=== PATIENT | female | born 2000 | race Caucasian/White ===

== ENCOUNTER 2021-04-14 08:25 | Inpatient (IN) | payer OTHER ==
[~2021-04-14] VITALS: Ht 147.3 cm; Wt 70.5 kg
[2021-04-14] VITALS (42 sets, daily range): BP systolic 84–128; BP diastolic 50–82
[2021-04-14] MEDS ORDERED: BUTORPHANOL INJ 2 MG/ML (STADOL) VIAL IV PRN (11:45)
[2021-04-14] MEDS ORDERED: AMPICILLIN FOR IV USE 2,000 MG in NS (IVPB) 50 ML IV SCH (11:46)
[2021-04-14] MEDS ORDERED: OXYTOCIN PRE-MIX DRIP 500 ML IV SCH ×2 (12:00→13:00)
[2021-04-14] MEDS ORDERED: D5 LR IV SOLUTION 1,000 ML IV SCH (12:00)
[2021-04-14] MEDS ORDERED: MEPIVACAINE (CARBOCAINE) 2% 50 ML VIAL INJ PRN (12:00)
[2021-04-14 12:29] LABS: BASOPHILS # (AUTO) 0.1 10^3/uL (0.0-0.1); BASOPHILS % (AUTO) 0 % (0-10); EOSINOPHILS # (AUTO) 0.3 10^3/uL (0.0-0.3); EOSINOPHILS % (AUTO) 2 % (0-10); HEMATOCRIT 31 % (35-52); HEMOGLOBIN 10.4 g/dL (11.5-16.0); LYMPHOCYTES # (AUTO) 2.1 10^3/uL (1.0-4.0); LYMPHOCYTES % (AUTO) 15 % (12-44); MEAN CORPUSCULAR HEMOGLOBIN 27 pg (25-34); MEAN CORPUSCULAR HGB CONC 33 g/dL (32-36); MEAN CORPUSCULAR VOLUME 79 fL (80-99); MEAN PLATELET VOLUME 11.3 fL (9.0-12.2); MONOCYTES # (AUTO) 0.8 10^3/uL (0.0-1.0); MONOCYTES % (AUTO) 6 % (0-12); NEUTROPHILS # (AUTO) 10.1 10^3/uL (1.8-7.8); NEUTROPHILS % (AUTO) 75 % (42-75); PLATELET COUNT 207 10^3/uL (130-400); WHITE BLOOD COUNT 13.5 10^3/uL (4.3-11.0)
--- NOTE | 2021-04-14 12:52 | History & Physical-OB ---
OB - Chief Complaint & HPI Date/Time Date of Admission: Date of Admission: Apr 14, 2021 at 11:40 Date seen by a Provider: Apr 14, 2021 Time Seen by a Provider: 12:40 Chief Complaint/History OB-Reason for Admission/Chief: Onset of Labor Hx : 3 Hx Para: 2 Expected Date of Delivery: Apr 24, 2021 Gestational Age in Weeks: 38 Gestational Age in Days: 4 Admission Nurse Assessment Rev: Yes History of Labs GBS unknown Allergies and Home Medications Allergies Coded Allergies: No Known Drug Allergies (Unverified , 04/14/21) Patient Home Medication List Home Medication List Reviewed: Yes OB - History Hx of Present Care: Yes Ultrasounds: Abnormal US findings (oligohydraminos) Obstetrical Complications: Other (oligo) Medical Complications: Other (maternal sphyllis in ) Patient Past Medical History maternal sphyllis in Immunizations Influenza Vaccine Up-to-Date: No; Not Current OB - Admission Exam Physical Exam HEENT: Moist Membranes Heart: Rhythm Normal Lungs: Clear Abdomen: Gravid Cervical Dilatation: 3cm Effacement: 75% Station: -3 Membranes: Ruptured Amniotic Fluid: Clear Heart Rate: 140's Accelerations: Accelerations Present Short Term Variability: Present Contractions on Admission: 6-10 Minutes Apart Intensity: Mild Labs Laboratory Tests Test 04/14/21 12:26 Range/Units White Blood Count 13.5 H 4.3-11.0 10^3/uL Red Blood Count 3.93 3.80-5.11 10^6/uL Hemoglobin 10.4 L 11.5-16.0 g/dL Hematocrit 31 L 35-52 % Mean Corpuscular Volume 79 L 80-99 fL Mean Corpuscular Hemoglobin 27 25-34 pg Mean Corpuscular Hemoglobin Concent 33 32-36 g/dL Red Cell Distribution Width 14.7 H 10.0-14.5 % Platelet Count 207 130-400 10^3/uL Mean Platelet Volume 11.3 9.0-12.2 fL Immature Granulocyte % (Auto) 2 % Neutrophils (%) (Auto) 75 42-75 % Lymphocytes (%) (Auto) 15 12-44 % Monocytes (%) (Auto) 6 0-12 % Eosinophils (%) (Auto) 2 0-10 % Basophils (%) (Auto) 0 0-10 % Neutrophils # (Auto) 10.1 H 1.8-7.8 10^3/uL Lymphocytes # (Auto) 2.1 1.0-4.0 10^3/uL Monocytes # (Auto) 0.8 0.0-1.0 10^3/uL Eosinophils # (Auto) 0.3 0.0-0.3 10^3/uL Basophils # (Auto) 0.1 0.0-0.1 10^3/uL Immature Granulocyte # (Auto) 0.2 H 0.0-0.1 10^3/uL OB - Assessment/Plan/Diagnosis Assessment Assessment: active labor (at 38w4d) Admission Dx 1. IUP at 38w4d 2. Oligohydraminos 3. maternal sphyllis in Admission Status: Inpatient Order (span 2 midnights) Reason for Inpatient Admission: L&D Plan Induction Method: AROM Other Plan -amp protochol (since GBS unknow) -desires epidural -pitocin MARIA G BAH MD Apr 14, 2021 12:52
[2021-04-14] MEDS ORDERED: fentaNYL 2 mcg/ml BUPIVA 0.125 100 ML ONE (12:58)
[2021-04-14 12:59] LABS: BILIRUBIN,URINE NEGATIVE (NEGATIVE); CLARITY,URINE CLEAR; COLOR,URINE YELLOW; GLUCOSE, URINE (UA) NEGATIVE (NEGATIVE); KETONES,URINE NEGATIVE (NEGATIVE); LEUKOCYTE ESTERASE ,URINE TRACE (NEGATIVE); NITRITE,URINE NEGATIVE (NEGATIVE); PROTEIN,URINE NEGATIVE (NEGATIVE)
[2021-04-14 13:15] LABS: BACTERIA,URINE FEW /HPF; WBC,URINE 0-2 /HPF
[2021-04-14] MEDS ORDERED: LACTATED RINGERS 1,000 ML IV ONE (13:15)
[2021-04-14] MEDS ORDERED: fentaNYL 2 mcg/ml BUPIVA 0.125 100 ML IV SCH (13:15)
[2021-04-14] MEDS ORDERED: CATHETER FLUSH 10 ML SYR IV PRN (13:15)
[2021-04-14] MEDS ORDERED: NALOXONE 0.4 MG/ML 1 ML (NARCAN) VIAL IV PRN ×2 (13:15→18:00)
[2021-04-14] MEDS ORDERED: ONDANSETRON 4 MG/2 ML (SDV) Z0FRAN IV PRN (13:15)
[2021-04-14] MEDS ORDERED: fentaNYL INJ 100 MCG/2 ML AMP ONE (13:19)
[2021-04-14] MEDS ORDERED: BUPIVACAINE 0.25% 30 ML (SENSORCAINE) VIAL ONE (13:20)
[2021-04-14] MEDS ORDERED: CATHETER FLUSH 10 ML SYR IV SCH ×2 (14:00→22:00)
[2021-04-14] MEDS ORDERED: PREN1TAB79 PO (14:09)
[2021-04-14] MEDS ORDERED: AMPICILLIN FOR IV USE 1,000 MG in NS (IVPB) 50 ML IV SCH (16:00)
[2021-04-14] MEDS ORDERED: FLU QUADRIvalent (3YOA+) 60 mcg/0.5 ml 2021-22(AFLURIA) IM ONE (16:15)
--- NOTE | 2021-04-14 17:51 | OB Labor & Delivery Record ---
L&D History Date of Service Date of Service: Apr 14, 2021 History Expected Date of Delivery: Apr 24, 2021 Gestational Age in Weeks: 38 Hx : 3 Hx Para: 3 Other History maternal history of syphilis that was treated in second trimester. Complications Events: Oliohydramnios Operative Indications (C[place]: N/A-Vaginal Delivery Intrapartal Events: None Other Complications GBS status unknown therefore she was given ampicillin protocol L&D Stage1 Stage One Onset of Labor - Date: Apr 14, 2021 Onset of Labor - Time: 12:45 Monitors and Tracing Monitor Mode: Internal Monitor Accelerations: Uniform Monitor Decelerations: Variable International Controller Variability: Average (6-10) Short Term Variability: Present Presentation: Vertex Vital Signs VS - Last 72 Hours, by Label 04/14/21 09:00 Temp 36.9 Pulse 110 Resp 20 Pulse Ox 99 O2 Delivery Room Air Signs of Distress by FHT Signs of Distress no Rupture of Membranes Spontaneous Ruture of Membrane: No Amniotic Membrane Rupture Time: 12:45 Amniotic Membrane Fluid Desc.: Clear Vaginal Bleeding Description: None Induction/Anesthesia Epidural Cath Placement - Time: 1334 L&D Stage2 Stage Two Stage II Date: Apr 14, 2021 Stage II Time: 17:19 Monitors and Tracing Monitor Mode: Internal Monitor Accelerations: Uniform Monitor Decelerations: Variable International Controller Variability: Average (6-10) Short Term Variability: Present Position: Left Occiput Anterior Presentation: Vertex Signs of Distress by FHT Signs of Distress no Cord Descript/Complications Cord Vessel Description: 3 Vessels Delivery Type Delivery Method: Spontaneous Vaginal Anterior Shoulder: Left Episiotomy/Perineal Laceration Laceraction(s)/Extensions: No Condition of Infant Delivery 1 minute Comment: 8 5 minute Comment: 9 Condition of Infant Exam: No Observed Abnormalities Resuscitation Resuscitation: N/A - Spontaneous Resp L&D Stage3 Stage Three Stage III Date: Apr 14, 2021 Stage III Time: 17:23 Pictocin Pitocin ml/hr: 125 Placenta Delivery Placenta Delivery: Spontaneous Delivery Summary Summary Estimated blood loss (mL): 200 Condition of Delivery Examined: Cervix Examined Post Hemorrhage: No Intervention Required none MARIA G BAH MD Apr 14, 2021 17:51
[2021-04-14] MEDS ORDERED: OXYTOCIN PRE-MIX DRIP 500 ML IV ONE (17:55)
[2021-04-14] MEDS: OXYTOCIN PRE-MIX DRIP 500 ML IV SCH ×2 (17:57→19:09)
[2021-04-14] MEDS ORDERED: ACETAMINOPHEN 500 MG TAB (TYLENOL) PO SCH (18:00)
[2021-04-14] MEDS ORDERED: WITCH HAZEL(TUCKS) 40 EA JAR TOP PRN (18:00)
[2021-04-14] MEDS ORDERED: MEASLES,MUMPS,RUBELLA 1 EA INJ SQ ONE (18:00)
[2021-04-14] MEDS ORDERED: BENZOCAINE/MENTHOL (DERMOPLAST) 56 ML CAN TP PRN (18:00)
[2021-04-14] MEDS ORDERED: TETANUS,DIPTH,PERTUSS P/F (BOOSTRIX) 0.5 ML VIAL IM ONE (18:00)
[2021-04-14] MEDS: IBUPROFEN 600 MG (MOTRIN) TAB PO SCH ×2 (18:30→23:58)
[2021-04-14] MEDS ORDERED: METHYLERGONOVINE 0.2 MG/ML (METHERGINE) AMP ONE (18:39)
[2021-04-14] MEDS ORDERED: METHYLERGONOVINE 0.2 MG/ML (METHERGINE) AMP IM ONE (19:45)
[2021-04-14] MEDS: DOCUSATE SODIUM 100 MG (COLACE) CAP PO SCH (23:13)
[2021-04-15 00:17] VITALS: BP 94/50
[2021-04-15 04:20] VITALS: BP 89/55
[2021-04-15] MEDS: IBUPROFEN 600 MG (MOTRIN) TAB PO SCH ×3 (05:47→18:05)
[2021-04-15 06:32] LABS: BASOPHILS # (AUTO) 0.1 10^3/uL (0.0-0.1); BASOPHILS % (AUTO) 0 % (0-10); EOSINOPHILS # (AUTO) 0.4 10^3/uL (0.0-0.3); EOSINOPHILS % (AUTO) 3 % (0-10); HEMATOCRIT 25 % (35-52); HEMOGLOBIN 8.3 g/dL (11.5-16.0); LYMPHOCYTES # (AUTO) 2.7 10^3/uL (1.0-4.0); LYMPHOCYTES % (AUTO) 17 % (12-44); MEAN CORPUSCULAR HEMOGLOBIN 26 pg (25-34); MEAN CORPUSCULAR HGB CONC 33 g/dL (32-36); MEAN CORPUSCULAR VOLUME 80 fL (80-99); MEAN PLATELET VOLUME 11.6 fL (9.0-12.2); MONOCYTES # (AUTO) 1.3 10^3/uL (0.0-1.0); MONOCYTES % (AUTO) 9 % (0-12); NEUTROPHILS # (AUTO) 11.2 10^3/uL (1.8-7.8); NEUTROPHILS % (AUTO) 71 % (42-75); PLATELET COUNT 196 10^3/uL (130-400); WHITE BLOOD COUNT 15.8 10^3/uL (4.3-11.0)
--- NOTE | 2021-04-15 07:06 | Discharge Summary ---
Diagnosis/Chief Complaint Date of Admission Apr 14, 2021 at 11:40 Date of Discharge April 15, 2021 Admission Diagnosis Admission Diagnosis 1. Intrauterine at 38 weeks gestation 2. History of maternal syphilis in treated Discharge Diagnosis 1. Intrauterine at 38 weeks gestation 2. History of maternal syphilis in treated 3. hemorrhage Chief Complaint/HPI Chief Complaint/HPI 20-year-old 3 now term 3 who initially presented to labor and delivery at 38 weeks 4 days gestation with uterine contractions. Patient presented during the afternoon of April 14, 2021 and was noted to be dilated to 3 cm. She had also seen perinatologist during the course of her care due to maternal syphilis. On recent ultrasound she was found to have oligohydramnios. Her EDC is noted to be April based upon her first ultrasound performed at 25 weeks at [facility]. Discharge Summary-OBS Procedures 1. Epidural per anesthesia 2. Spontaneous vaginal delivery Discharge Physical Examination Allergies: Coded Allergies: No Known Drug Allergies (Unverified , 04/14/21) Vitals & I&Os Intake and Output 04/14/21 23:59 Intake Total 2739.8 ml Output Total 910 ml Balance 1829.8 ml Vital Sign - Last 12Hours Date Time Temp Pulse Resp B/P (MAP) Pulse Ox O2 Delivery O2 Flow Rate FiO2 04/15/21 04:20 37.2 76 18 89/55 (66) Room Air 04/14/21 17:15 100 15.00 General Appearance: No Acute Distress Respiratory: Clear to Auscultation Cardiovascular: Regular Rate Abdominal: Soft (with uterus firm) Extremities: No Edema Skin: No Rashes Psych/Mental Status: Mental Status NL Hospital Course Was the Problem List Reviewed?: Yes upon presentation during the afternoon of April 14, 2021 she was admitted for labor course. She requested epidural and this was provided by anesthesia. She gained excellent pain relief. She had scalp electrode placed with noting of clear fluid. She was noted to have variable decelerations during the course of her labor but overall reassuring. She required low-dose Pitocin augmentation. Ultimately she went on to completion and delivered over a intact perineum a term viable male. had received Apgars of 8 at 1 minute and 9 at 5 minutes. At that time her estimated blood loss was 200 cc. Within the following hours she did have further bleeding which required Methergine as well as 600 mg Cytotec Following delivery she underwent routine care orders. She did not have any noted dizziness. Her bleeding remained controlled. She tolerated regular diet. She had no chest pain or shortness of breath. In the a.m. of April 15 her hemoglobin was 8.3. Her hemoglobin on admission was 10.4. She was eager for dismissal during the late afternoon of April 15, 2021. She will follow-up with Dr. Bah at [facility] in 6 weeks. Labs Laboratory Tests 04/14/21 09:00: Urine Color YELLOW, Urine Clarity CLEAR, Urine pH 7.0, Urine Specific [place] 1.020, Urine Protein NEGATIVE, Urine Glucose (UA) NEGATIVE, Urine Ketones NEGATIVE, Urine Nitrite NEGATIVE, Urine Bilirubin NEGATIVE, Urine Urobilinogen 0.2, Urine Leukocyte Esterase TRACEH, Urine RBC (Auto) NEGATIVE, Urine RBC NONE, Urine WBC 0-2, Urine Squamous Epithelial Cells 10-25H, Urine Crystals NONE, Urine Bacteria FEWH, Urine Casts NONE, Urine Mucus NEGATIVE, Urine Culture Indicated NO 04/14/21 12:26: White Blood Count 13.5H, Red Blood Count 3.93, Hemoglobin 10.4L, Hematocrit 31L, Mean Corpuscular Volume 79L, Mean Corpuscular Hemoglobin 27, Mean Corpuscular Hemoglobin Concent 33, Red Cell Distribution Width 14.7H, Platelet Count 207, Mean Platelet Volume 11.3, Immature Granulocyte % (Auto) 2, Neutrophils (%) (Auto) 75, Lymphocytes (%) (Auto) 15, Monocytes (%) (Auto) 6, Eosinophils (%) (Auto) 2, Basophils (%) (Auto) 0, Neutrophils # (Auto) 10.1H, Lymphocytes # (Auto) 2.1, Monocytes # (Auto) 0.8, Eosinophils # (Auto) 0.3, Basophils # (Auto) 0.1, Immature Granulocyte # (Auto) 0.2H 04/15/21 05:27: White Blood Count 15.8H, Red Blood Count 3.15L, Hemoglobin 8.3#L, Hematocrit 25L , Mean Corpuscular Volume 80, Mean Corpuscular Hemoglobin 26, Mean Corpuscular Hemoglobin Concent 33, Red Cell Distribution Width 14.7H, Platelet Count 196, Mean Platelet Volume 11.6, Immature Granulocyte % (Auto) 1, Neutrophils (%) (Auto) 71, Lymphocytes (%) (Auto) 17, Monocytes (%) (Auto) 9, Eosinophils (%) (Auto) 3, Basophils (%) (Auto) 0, Neutrophils # (Auto) 11.2H, Lymphocytes # (Auto) 2.7, Monocytes # (Auto) 1.3H, Eosinophils # (Auto) 0.4H, Basophils # (Auto) 0.1, Immature Granulocyte # (Auto) 0.1 Discharge Instructions to patient/family Please see electronic discharge instructions given to patient. Discharge Medications Reviewed and agree with Discharge Medication list on patient's Discharge Instruction sheet MARIA G BAH MD Apr 15, 2021 07:06
[2021-04-15] MEDS ORDERED: IBUP-844 PO (07:07)
--- NOTE | 2021-04-15 07:08 | Discharge Inst-Women's Service ---
Discharge Inst-Women's Serv Depart Medication/Instructions New, Converted or Re-Newed RX: Transmitted to Pharmacy ([facility]) Problems Reviewed?: Yes Consults/Follow Up Additional Follow Up: Yes (with Dr. Bah in 6 weeks) Activity Activity: Activity as Tolerated Driving Instructions: No Driving for 1 Week Nothing Inside Vagina: No [place] (for 6 weeks) Diet Discharge Diet: Regular Diet Return to The Hospital For: as below Symptoms to Report to : Bleeding Excessive, Pain Increased, Vaginal D ischarge Foul For Any Problems or Questions: Contact Your Physician MARIA G BAH MD Apr 15, 2021 07:08
--- NOTE | 2021-04-15 09:23 | Anesthesia-Regional Post-Op ---
Regional Patient Condition Mental Status: Alert, Oriented x3 Circulation: Same as Pre-Op Headache: Absent Sensation: Full Recovery Motor Block: Absent Post Op Complications Complications None Follow Up Care/Instructions Patient Instructions None needed. Anesthesia/Patient Condition Patient is doing well, no complaints, stable vital signs, no apparent adverse anesthesia problems. No complications reported per nursing. IRVIN MURILLO CRNA Apr 15, 2021 09:23
[2021-04-15 09:30] VITALS: BP 108/72
[2021-04-15] MEDS: DOCUSATE SODIUM 100 MG (COLACE) CAP PO SCH (09:50)
[2021-04-15] MEDS: ACETAMINOPHEN 500 MG TAB (TYLENOL) PO PRN ×2 (09:51→18:04)
[2021-04-15 12:30] VITALS: BP 84/52
[2021-04-15 18:00] VITALS: BP 100/66
[2021-04-15 19:30] VITALS: BP 0/0
== END 2021-04-15 19:50 | disposition home or self-care (01) | DRG 806 ==
LOC: WSo 08:25 → LDRP 08:28 → WSo 11:40 → LDRP 11:40
PROVIDERS: ADMIT Family Medicine; ATTEND Family Medicine
PROC: 10E0XZZ Delivery of Products of Conception, External Approach (ICD-10-PCS; principal; 2021-04-14)
PROC: 10907ZC Drainage of Amniotic Fluid, Therapeutic from Products of Conception, Via Natural or Artificial Opening (ICD-10-PCS; 2021-04-14)
DX: O41.03X0 Oligohydramnios, third trimester, not applicable or unspecified (principal); O72.1 Other immediate postpartum hemorrhage; Z37.0 Single live birth; Z3A.38 38 weeks gestation of pregnancy
CPT/HCPCS: 36415; 81000; 85025; 86850; 86900; 86901; 99212

== ENCOUNTER 2022-06-02 11:20 | Outpatient (CLI) | payer MEDICAID ==
[~2022-06-02] VITALS: Ht 152.4 cm; Wt 72.3 kg
[~2022-06-02 11:20] MED LIST: IBUP-844 PO; PREN1TAB79 PO
[2022-06-02 11:38] VITALS: BP 100/68
[2022-06-02 11:42] VITALS: BP 100/68
--- NOTE | 2022-06-03 08:30 | Physician Query-Final Dx ---
LEE,06/03/22 0830: Clinic Account Progress/Dx Physician Query: Please give diagnosis Please include # weeks gestation Date of Service Jun 02, 2022 at 11:20 RAMSEY SNIDER MD 06/27/22 194: Clinic Account Progress/Dx DIAGNOSIS: Diagnosis Third Trimester 36 week gestation tachycardia ,MarJun 03, 2022 08:30 RAMSEY SNIDER MD Jun 27, 2022 19:41
[2022-06-25] MEDS ORDERED: FERR325T24 PO (10:24)
[2022-06-25] MEDS ORDERED: IBUP-844 PO (10:24)
== END 2022-06-02 13:20 | disposition home or self-care (01) ==
LOC: LDRP 11:20 → WSo 11:20
PROVIDERS: ATTEND Family Medicine
DX: O36.8330 Maternal care for abnormalities of the fetal heart rate or rhythm, third trimester, not applicable or unspecified (principal); Z3A.36 36 weeks gestation of pregnancy
CPT/HCPCS: 99212

== ENCOUNTER 2022-06-23 06:43 | Inpatient (IN) | payer MEDICAID ==
[2022-06-23] VITALS (35 sets, daily range): BP systolic 80–124; BP diastolic 47–78
[~2022-06-23] VITALS: Ht 149.9 cm; Wt 72.4 kg
[2022-06-23] MEDS ORDERED: D5 LR IV SOLUTION 1,000 ML IV SCH (07:30)
[2022-06-23] MEDS ORDERED: MINERAL OIL 30 ML UDC TOP PRN (07:30)
[2022-06-23 08:03] LABS: BASOPHILS % (AUTO) 0 % (0-10); EOSINOPHILS # (AUTO) 0.1 10^3/uL (0.0-0.3); EOSINOPHILS % (AUTO) 1 % (0-10); HEMATOCRIT 23 % (35-52); LYMPHOCYTES % (AUTO) 28 % (12-44); MEAN CORPUSCULAR HEMOGLOBIN 19 pg (25-34); MEAN CORPUSCULAR HGB CONC 30 g/dL (32-36); MEAN CORPUSCULAR VOLUME 64 fL (80-99); MONOCYTES # (AUTO) 0.5 10^3/uL (0.0-1.0); MONOCYTES % (AUTO) 6 % (0-12); NEUTROPHILS # (AUTO) 4.7 10^3/uL (1.8-7.8); NEUTROPHILS % (AUTO) 64 % (42-75); PLATELET COUNT 190 10^3/uL (130-400); WHITE BLOOD COUNT 7.4 10^3/uL (4.3-11.0)
[2022-06-23 08:05] LABS: HEMOGLOBIN 6.8 g/dL (11.5-16.0)
[2022-06-23] MEDS: OXYTOCIN PRE-MIX DRIP 500 ML IV SCH ×2 (09:16→15:06)
--- NOTE | 2022-06-23 10:23 | History & Physical-OB ---
OB - Chief Complaint & HPI Date/Time Date of Admission: Date of Admission: Jun 23, 2022 at 06:43 Date seen by a Provider: Jun 23, 2022 Time Seen by a Provider: 08:30 Chief Complaint/History OB-Reason for Admission/Chief: Induction of Labor Hx : 4 Hx Para: 3 Expected Date of Delivery: Jun 27, 2022 Gestational Age in Weeks: 39 Gestational Age in Days: 3 Indication for induction: other (oligohydraminos) History of Labs Late-entry into care at 35wk. 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 with previous oligohydraminos with TIM of 5.3 on 06/17/22 Allergies and Home Medications Allergies Coded Allergies: No Known Drug Allergies (Unverified , 04/14/21) Patient Home Medication List Home Medication List Reviewed: Yes Discontinued Medications Vit W-Ca,Fe,FA(<1 mg) ( Vitamins) 1 Each Tablet, 1 EACH PO DAILY, (Reported) Discontinued Reason: No Longer Taking Entered as Reported by: VERNA QUAN on 04/14/21 7310 Last Action: Discontinued OB - History Hx of Present Care: No (first visit at 35 wk) Ultrasounds: Abnormal US findings (oligohydraminos) Obstetrical Complications: None Medical Complications: Other (anemia) Information Induced Hypertension: No Maternal Gestational Diabetes: No Hemorrhage: No Obstetrical History Hx : 4 Hx Para: 3 Hx # Term Pregnancies: 2 Hx # Pregnancies: 1 Number of Living Children: 3 Hx Termination: No Hx Multiple Gestation: No Hx Ectopic : No Hx Stillbirth: No Hx Complication: No Hx Induced Hypertens: No Hx Maternal Gestational Diabet: No Hx Hemorrhage: No Delivery History Hx Dystocia: No Hx Forceps Assisted Delivery: No Hx Vacuum Extraction Assisted: No Hx Placenta Abnormality: No Hx Distress: No Hx Large For Gestational Age I: No Hx Small for Gestational Age I: No Hx Section: No Hx Vaginal Delivery Post C-Sec: No Hx Blood Disorders: No Adverse Rxn to Tranfusion: No Patient Past Medical History hx of positive RPR; titier 1:1 anemia of Social History/Family History 2nd Hand Smoke Exposure: No Immunizations Influenza Vaccine Up-to-Date: Yes; Up-to-Date Rubella: not immune GBS Status: Negative HBsAG: Negative OB - Admission Exam Physical Exam Vitals: Vital Signs 06/23/22 06/23/22 07:29 07:37 Temp 37.0 Pulse 82 Resp 18 B/P (MAP) 101/57 (72) Pulse Ox 100 O2 Delivery Room Air Abdomen: Gravid Cervical Dilatation: 4cm Effacement: 75% Station: -1 Membranes: Ruptured (FSE placed) Amniotic Fluid: Unevaluable Heart Rate: 140's Accelerations: Accelerations Present Decelerations: No Decelerations Short Term Variability: Present Residential Variability: Average (6-25) Contractions on Admission: 6-10 Minutes Apart Intensity: Mild Labs Laboratory Tests Test 06/23/22 07:45 Range/Units White Blood Count 7.4 4.3-11.0 10^3/uL Red Blood Count 3.56 L 3.80-5.11 10^6/uL Hemoglobin 6.8 *L 11.5-16.0 g/dL Hematocrit 23 L 35-52 % Mean Corpuscular Volume 64 L 80-99 fL Mean Corpuscular Hemoglobin 19 L 25-34 pg Mean Corpuscular Hemoglobin Concent 30 L 32-36 g/dL Red Cell Distribution Width 19.5 H 10.0-14.5 % Platelet Count 190 130-400 10^3/uL Mean Platelet Volume 9.0-12.2 fL Immature Granulocyte % (Auto) 0 % Neutrophils (%) (Auto) 64 42-75 % Lymphocytes (%) (Auto) 28 12-44 % Monocytes (%) (Auto) 6 0-12 % Eosinophils (%) (Auto) 1 0-10 % Basophils (%) (Auto) 0 0-10 % Neutrophils # (Auto) 4.7 1.8-7.8 10^3/uL Lymphocytes # (Auto) 2.0 1.0-4.0 10^3/uL Monocytes # (Auto) 0.5 0.0-1.0 10^3/uL Eosinophils # (Auto) 0.1 0.0-0.3 10^3/uL Basophils # (Auto) 0.0 0.0-0.1 10^3/uL Immature Granulocyte # (Auto) 0.0 0.0-0.1 10^3/uL Percent Immature Platelet Fraction 9.1 H 0.0-7.6 % OB - Assessment/Plan/Diagnosis Assessment Assessment: induction of labor Admission Dx 1. at 39wk 2. IOL for oligohydraminos 3. anemia of 4. late/insufficient care Admission Status: Inpatient Order (span 2 midnights) Reason for Inpatient Admission: labor and delivery Plan Plan: Induction Induction Method: per Pitocin Protocol Other Plan Anticipate vaginal discharge. SOHAIL ISLAS DO Jun 23, 2022 10:23
[2022-06-23] MEDS ORDERED: fentaNYL INJ 100 MCG/2 ML AMP ONE (12:40)
[2022-06-23] MEDS ORDERED: fentaNYL INJ 100 MCG/2 ML AMP IVP ONE (12:45)
[2022-06-23] MEDS ORDERED: LIDOCAINE 1% INJ 10 ML VIAL ONE (13:10)
[2022-06-23] MEDS ORDERED: CATHETER FLUSH 10 ML SYR IV SCH ×2 (14:00→22:00)
[2022-06-23] MEDS ORDERED: LIDOCAINE/EPI 2% 1:200,00 (XYLOCAINE) 20 ML VIAL ONE (14:42)
[2022-06-23] MEDS ORDERED: LIDOCAINE/EPI 2% 1:200,00 (XYLOCAINE) 10 ML VIAL INJ ONE (14:44)
[2022-06-23] MEDS ORDERED: WITCH HAZEL(TUCKS) 40 EA JAR TOP PRN (15:15)
[2022-06-23] MEDS ORDERED: TETANUS,DIPTH,PERTUSS P/F (BOOSTRIX) 0.5 ML VIAL IM ONE (15:15)
[2022-06-23] MEDS ORDERED: OXYTOCIN PRE-MIX DRIP 500 ML IV SCH (15:15)
[2022-06-23] MEDS ORDERED: BENZOCAINE/MENTHOL (DERMOPLAST) 56 ML CAN TP PRN (15:15)
[2022-06-23] MEDS ORDERED: MEASLES,MUMPS,RUBELLA 1 EA INJ SQ ONE (15:15)
--- NOTE | 2022-06-23 15:18 | OB Labor & Delivery Record ---
Vag Delivery Note Vag Delivery Note Date of Delivery: 06/23/22 Preoperative Diagnosis: Hugo Kothari is a (22 /Para 4 / 3,Gestational Age (wks)39with induction of labor secondary to oligohydraminos. Postoperative Diagnosis: Same Surgeon: SOHAIL ISLAS Anesthesia: none Delivery Type: Spontaneous Vaginal delivery @ 1437 Findings: Viable female , apgars 9/9, weight 6#4 (2825g) Lacerations: periurethral Intact placenta with 3 vessel cord. No nuchal cord, body cord or shoulder dystocia Estimated Blood Loss: 500 ml Complications: None Condition: Stable Description of Procedure: The patient is a 22 year old female who presented for induction of labor secondary to oligohydraminos. She was admitted and informed consent was obtained. Her labor course was remarkable for deep variable decelerations in the second stage of labor. She progressed to complete dilatation and began to push. She was then set up for delivery. The 's head was delivered atraumatically in the OA position. The shoulders and remainder of the infant's body were then delivered without difficulty. Upon delivery, the was vigorous and placed on maternal chest and the mouth and nares were bulb suctioned. Cord was doubly clamped and cut and the remained on maternal chest. An intact placenta with 3-vessel cord delivered via [place] and there was found to be bleeding from the periurethral laceration.~ Vigorous fundal massage was performed and the fundus was found to be firm. IV oxytocin was started after delivery of the infant. Examination of the vagina and perineum revealed a periurethral laceration. A red catheter was placed in the urethra to identify the urethral meatus during the laceration repair. The laceration was repaired with 3-0 vicryl rapide suture with a running stitch. Bleeding was controlled following repair. Following the repair, sponge, instrument and needle counts were correct. Mom and baby were both in stable condition in the labor suite. Hb was obtained following delivery due to blood loss and low initial Hb of 6.8. BP and pulse normal. Will repeat Hb again in 2 hours and monitor. Vitals - Labs Vital Signs - I&O Vital Signs Date Time Temp Pulse Resp B/P (MAP) Pulse Ox O2 Delivery O2 Flow Rate FiO2 06/23/22 13:50 83 18 109/69 (82) Room Air 06/23/22 13:35 87 18 105/64 (78) Room Air 06/23/22 13:20 83 18 112/69 (83) Room Air 06/23/22 13:05 78 18 120/68 (85) Room Air 06/23/22 12:51 80 18 110/64 (79) Room Air 06/23/22 12:36 78 18 120/68 (85) Room Air 06/23/22 12:35 63 18 93/58 (70) Room Air 06/23/22 12:21 83 18 95/57 (70) Room Air 06/23/22 12:06 82 18 92/55 (67) Room Air 06/23/22 11:50 80 18 115/74 (88) Room Air 06/23/22 11:35 77 18 102/60 (74) Room Air 06/23/22 11:20 75 18 117/71 (86) Room Air 06/23/22 11:05 36.9 93 18 115/62 (79) Room Air 06/23/22 10:51 78 18 112/67 (82) Room Air 06/23/22 10:36 75 18 108/69 (82) Room Air 06/23/22 10:21 36.8 93 18 115/75 (88) Room Air 06/23/22 10:16 77 18 109/69 (82) Room Air 06/23/22 09:50 82 18 110/67 (81) Room Air 06/23/22 09:35 85 18 105/65 (78) Room Air 06/23/22 09:15 37.0 83 18 97/68 (78) Room Air 06/23/22 07:37 37.0 82 18 100 Room Air 06/23/22 07:29 37.0 85 18 101/57 (72) 100 Room Air Labs Laboratory Tests 06/23/22 07:45: White Blood Count 7.4, Red Blood Count 3.56L, Hemoglobin 6.8*L, Hematocrit 23L, Mean Corpuscular Volume 64L, Mean Corpuscular Hemoglobin 19L, Mean Corpuscular Hemoglobin Concent 30L, Red Cell Distribution Width 19.5H, Platelet Count 190, Mean Platelet Volume , Immature Granulocyte % (Auto) 0, Neutrophils (%) (Auto) 64, Lymphocytes (%) (Auto) 28, Monocytes (%) (Auto) 6, Eosinophils (%) (Auto) 1, Basophils (%) (Auto) 0, Neutrophils # (Auto) 4.7, Lymphocytes # (Auto) 2.0, Monocytes # (Auto) 0.5, Eosinophils # (Auto) 0.1, Basophils # (Auto) 0.0, Immature Granulocyte # (Auto) 0.0, Percent Immature Platelet Fraction 9.1H SOHAIL ISLAS DO Jun 23, 2022 15:18
[2022-06-23 15:23] LABS: HEMOGLOBIN 6.9 g/dL (11.5-16.0)
[2022-06-23] MEDS: IBUPROFEN 600 MG (MOTRIN) TAB PO SCH (17:23)
[2022-06-23] MEDS: FERROUS SULF 325 MG (IRON) TAB PO SCH (17:23)
[2022-06-23 17:38] LABS: HEMOGLOBIN 6.6 g/dL (11.5-16.0)
[2022-06-23] MEDS: DOCUSATE SODIUM 100 MG (COLACE) CAP PO SCH (20:02)
[2022-06-23 22:49] LABS: HEMOGLOBIN 5.6 g/dL (11.5-16.0)
[2022-06-23] MEDS ORDERED: NS IV 500 ML 500 ML IV SCH (23:00)
[2022-06-24] MEDS: IBUPROFEN 600 MG (MOTRIN) TAB PO SCH ×4 (00:21→19:21)
[2022-06-24 01:47] VITALS: BP 88/53
[2022-06-24 05:54] VITALS: BP 80/43
[2022-06-24 06:21] LABS: BASOPHILS % (AUTO) 0 % (0-10); EOSINOPHILS # (AUTO) 0.1 10^3/uL (0.0-0.3); EOSINOPHILS % (AUTO) 0 % (0-10); HEMATOCRIT 21 % (35-52); LYMPHOCYTES # (AUTO) 2.2 10^3/uL (1.0-4.0); LYMPHOCYTES % (AUTO) 17 % (12-44); MEAN CORPUSCULAR HEMOGLOBIN 22 pg (25-34); MEAN CORPUSCULAR HGB CONC 33 g/dL (32-36); MEAN CORPUSCULAR VOLUME 67 fL (80-99); MONOCYTES % (AUTO) 7 % (0-12); NEUTROPHILS # (AUTO) 10.1 10^3/uL (1.8-7.8); NEUTROPHILS % (AUTO) 75 % (42-75); PLATELET COUNT 150 10^3/uL (130-400); WHITE BLOOD COUNT 13.5 10^3/uL (4.3-11.0)
[2022-06-24 06:23] LABS: HEMOGLOBIN 6.9 g/dL (11.5-16.0)
[2022-06-24 08:23] VITALS: BP 86/53
[2022-06-24] MEDS: PRENATAL VITAMIN 1 EA TAB PO SCH (08:23)
[2022-06-24] MEDS: FERROUS SULF 325 MG (IRON) TAB PO SCH ×2 (08:23→19:21)
[2022-06-24] MEDS: DOCUSATE SODIUM 100 MG (COLACE) CAP PO SCH (08:24)
[2022-06-24] MEDS ORDERED: MEASLES,MUMPS,RUBELLA 1 EA INJ SC ONE (14:00)
[2022-06-24] MEDS ORDERED: TETANUS,DIPTH,PERTUSS P/F (BOOSTRIX) 0.5 ML VIAL IM ONE (14:00)
[2022-06-24 15:05] VITALS: BP 96/52
--- NOTE | 2022-06-24 17:51 | Progress Note ---
Subjective Subjective/Events-last exam Doing well. Bleeding slowed/light. Denies dizziness with getting up. Objective Exam Last Set of Vital Signs Vital Signs Date Time Temp Pulse Resp B/P (MAP) Pulse Ox O2 Delivery O2 Flow Rate FiO2 06/24/22 15:05 36.4 75 16 96/52 (67) 99 Room Air Capillary Refill : Less Than 3 Seconds I&O Intake and Output 06/24/22 00:00 Intake Total 275 ml Balance 275 ml Intake Other 275 ml Blood Loss Quantification Method 500 ml Daily Weight Change No General: Alert, Oriented X3, Cooperative Abdomen: Soft, Other (fundus firm) Psych/Mental Status: Mental Status NL, Mood NL Results/Procedures Lab Laboratory Tests 06/23/22 22:35: Hemoglobin 5.6*L, Hematocrit 19*L 06/24/22 05:30: Hemoglobin 6.9#*L, Hematocrit 21L, White Blood Count 13.5H, Red Blood Count 3.16L, Mean Corpuscular Volume 67L, Mean Corpuscular Hemoglobin 22L, Mean Corpuscular Hemoglobin Concent 33, Red Cell Distribution Width 21.1H, Platelet Count 150, Mean Platelet Volume , Immature Granulocyte % (Auto) 1, Neutrophils (%) (Auto) 75, Lymphocytes (%) (Auto) 17, Monocytes (%) (Auto) 7, Eosinophils (%) (Auto) 0, Basophils (%) (Auto) 0, Neutrophils # (Auto) 10.1H, Lymphocytes # (Auto) 2.2, Monocytes # (Auto) 1.0, Eosinophils # (Auto) 0.1, Basophils # (Auto) 0.0, Immature Granulocyte # (Auto) 0.1 Assessment/Plan Assessment/Plan Assessment & Plan PPD #1 s/p on 06/23/22 Periurethral laceration repair Anemia of - decrease in Hb to 5.6 following delivery (starting 6.8). Transfused 1U prbc with improvement to 6.9 - patient is asymptomatic - on ferrous sulfate BID -repeat CBC in am. SOHAIL ISLAS DO Jun 24, 2022 17:51
[2022-06-24 19:20] VITALS: BP 99/52
[2022-06-25 01:26] VITALS: BP 96/61
[2022-06-25] MEDS: IBUPROFEN 600 MG (MOTRIN) TAB PO SCH ×3 (01:26→11:53)
[2022-06-25 06:19] LABS: BASOPHILS # (AUTO) 0.1 10^3/uL (0.0-0.1); BASOPHILS % (AUTO) 1 % (0-10); HEMOGLOBIN 7.8 g/dL (11.5-16.0)
[2022-06-25 06:20] LABS: EOSINOPHILS # (AUTO) 0.4 10^3/uL (0.0-0.3); EOSINOPHILS % (AUTO) 3 % (0-10); HEMATOCRIT 25 % (35-52); LYMPHOCYTES # (AUTO) 2.6 10^3/uL (1.0-4.0); LYMPHOCYTES % (AUTO) 20 % (12-44); MEAN CORPUSCULAR HEMOGLOBIN 21 pg (25-34); MEAN CORPUSCULAR HGB CONC 31 g/dL (32-36); MEAN CORPUSCULAR VOLUME 68 fL (80-99); MONOCYTES # (AUTO) 0.7 10^3/uL (0.0-1.0); MONOCYTES % (AUTO) 5 % (0-12); NEUTROPHILS % (AUTO) 70 % (42-75); PLATELET COUNT 206 10^3/uL (130-400)
[2022-06-25 06:30] LABS: SMEAR SCAN COMMENT YES
[2022-06-25 06:48] VITALS: BP 90/54
[2022-06-25 08:36] VITALS: BP 103/66
[2022-06-25] MEDS: FERROUS SULF 325 MG (IRON) TAB PO SCH (08:37)
[2022-06-25] MEDS: DOCUSATE SODIUM 100 MG (COLACE) CAP PO SCH (08:37)
[2022-06-25] MEDS: PRENATAL VITAMIN 1 EA TAB PO SCH (08:38)
[2022-06-25] MEDS ORDERED: FERR325T24 PO (10:24)
[2022-06-25] MEDS ORDERED: IBUP-844 PO (10:24)
--- NOTE | 2022-06-25 10:24 | Discharge Summary ---
Discharge Summary Hospital Course Hospital Course Date of Admission: Jun 23, 2022 at 06:43 Admission Diagnosis : 1. at 39wk 2. IOL for oligohydraminos 3. anemia of 4. late/insufficient care Family Physician/Provider: Denis Date of Discharge: 06/25/22 Discharge Diagnosis: [ ] 1. at 39wk s/p 2. IOL for oligohydraminos 3. anemia of exacerbated by acute blood loss 4. late/insufficient care 5. periurethral laceration repair 6. s/p transfusion of 1 unit prbc Hospital Course: s/p on 06/23/22 Periurethral laceration repair Anemia of - decrease in Hb to 5.6 following delivery (starting 6.8). Transfused 1U prbc with improvement to 6.9 - patient is asymptomatic - on ferrous sulfate BID -repeat CBC in am. 06/25: Hb increased to 7.8 DC to home on iron supplementation. Labs and Pending Lab Test: Laboratory Tests 06/25/22 05:58: White Blood Count 13.0H, Red Blood Count 3.68L, Hemoglobin 7.8L, Hematocrit 25L, Mean Corpuscular Volume 68L, Mean Corpuscular Hemoglobin 21L, Mean Corpuscular Hemoglobin Concent 31L, Red Cell Distribution Width 22.0H, Platelet Count 206, Mean Platelet Volume , Immature Granulocyte % (Auto) 2, Neutrophils (%) (Auto) 7 0, Lymphocytes (%) (Auto) 20, Monocytes (%) (Auto) 5, Eosinophils (%) (Auto) 3, Basophils (%) (Auto) 1, Neutrophils # (Auto) 9.0H, Lymphocytes # (Auto) 2.6, Monocytes # (Auto) 0.7, Eosinophils # (Auto) 0.4H, Basophils # (Auto) 0.1, Immature Granulocyte # (Auto) 0.2H, Percent Immature Platelet Fraction 8.4H, Smear Scan YES Discharge Meds Ibuprofen 600mg every 6h as needed Ferrous sulfate 325mg twice daily Assessment/Pt DC Instructions follow-up with Dr. Barrios in 6 weeks Discharge Diet: No Restrictions Discharge Physical Examination Allergies: Coded Allergies: No Known Drug Allergies (Unverified , 04/14/21) General Appearance: No Apparent Distress, WD/WN HEENT: PERRL/EOMI Respiratory: No Respiratory Distress Skin: Normal Color, Warm/Dry Neurologic/Psychiatric: Alert, Oriented x3 SOHAIL ISLAS DO Jun 25, 2022 10:24
== END 2022-06-25 13:10 | disposition home or self-care (01) | DRG 806 ==
LOC: LDRP 06:43
PROVIDERS: ADMIT Family Medicine; ATTEND Family Medicine
PROC: 10E0XZZ Delivery of Products of Conception, External Approach (ICD-10-PCS; principal; 2022-06-23)
PROC: 0UQMXZZ Repair Vulva, External Approach (ICD-10-PCS; 2022-06-23)
DX: O41.03X0 Oligohydramnios, third trimester, not applicable or unspecified (principal); D62 Acute posthemorrhagic anemia; Z37.0 Single live birth; Z3A.39 39 weeks gestation of pregnancy; O99.02 Anemia complicating childbirth; O71.82 Other specified trauma to perineum and vulva
CPT/HCPCS: 36415; 85014; 85018; 85025; 86780; 86850; 86900; 86901; 86920; 90707; 90715